=== PATIENT | male | born 1995 | race Asian ===

== ENCOUNTER 2018-01-09 23:06 | Emergency (ER) | payer BC ==
[2018-01-09 23:15] VITALS: BP 129/74
[2018-01-09] MEDS ORDERED: Albuterol/Ipratropium NEB.SOL* Albuterol 2.5 MG/Ipratropium 0.5 MG 3 ML INH ONE (23:21)
[2018-01-09] MEDS ORDERED: predniSONE TAB* 20 MG PO ONE (23:46)
[2018-01-09] MEDS ORDERED: Azithromycin TAB* 250 MG PO ONE (23:49)
--- NOTE | 2018-01-09 23:55 | ED ---
Respiratory - HPI Summary HPI Summary: 22 year male presents with cough for the past 3 weeks. He states that a couple days ago he had a fever. He states his cough is dry and sometimes productive. He admits to occasional vomiting due to the cough. No bowel pain. No chest pain. admits to occasional shortness of breath with cough. No sore throat. No sinus congestion. Has no medical conditions. No family history of asthma or COPD. Is not a smoker. No pain or swelling in his calf muscles. Has not tried anything for her symptoms. - History of Current Complaint Chief Complaint: EDUpperRespComplaint Stated Complaint: COUGH/GENERAL ILLNESS Time Seen by Provider: 01/09/18 23:16 Pain Intensity: 0 Sputum Amount: Scant - Allergy/Home Medications Allergies/Adverse Reactions: Allergies Allergy/AdvReac Type Severity Reaction Status Date / Time No Known Allergies Allergy Verified 01/09/18 23:15 PMH/Surg Hx/FS Hx/Imm Hx Endocrine/Hematology History: Denies: Hx Anticoagulant Therapy Respiratory History: Denies: Hx Asthma Infectious Disease History: No Infectious Disease History: Denies: Traveled Outside the [place] in Last 30 Days - Family History Known Family History: Negative: Respiratory Disease - Social History Alcohol Use: Occasionally Substance Use Type: Reports: None Smoking Status (MU): Never Smoked Tobacco Review of Systems Positive: Fever Negative: Chest Pain Positive: Shortness Of Breath, Cough Positive: Vomiting. Negative: Abdominal Pain All Other Systems Reviewed And Are Negative: Yes Physical Exam Triage Information Reviewed: Yes Vital Signs On Initial Exam: Initial Vitals Temp Pulse Resp BP Pulse Ox 97.7 F 112 15 129/74 96 01/09/18 23:13 01/09/18 23:13 01/09/18 23:13 01/09/18 23:13 01/09/18 23:13 Vital Signs Reviewed: Yes Appearance: Positive: Well-Appearing Skin: Positive: Warm, Dry Head/Face: Positive: Normal Head/Face Inspection Eyes: Positive: Normal, Conjunctiva Clear ENT: Positive: Normal ENT inspection, Pharynx normal, TMs normal Respiratory/Lung Sounds: Positive: Breath Sounds Present, Other - congestion heard Cardiovascular: Positive: Normal, RRR Abdomen Description: Positive: Nontender, Soft Bowel Sounds: Positive: Present Musculoskeletal: Positive: Normal Neurological: Positive: Normal Psychiatric: Positive: Normal Diagnostics - Vital Signs Vital Signs Temp Pulse Resp BP Pulse Ox 01/09/18 23:35 117 18 98 01/09/18 23:13 97.7 F 112 15 129/74 96 - Laboratory Lab Statement: Any lab studies that have been ordered have been reviewed, and results considered in the medical decision making process. - Radiology chest Xray Interpretation: No Acute Changes Radiology Interpretation Completed By: ED Physician Disposition - Course Course Of Treatment: 22 year male presents with cough for the past 3 weeks. He states that a couple days ago he had a fever. He states his cough is dry and sometimes productive. He admits to occasional vomiting due to the cough. No bowel pain. No chest pain. admits to occasional shortness of breath with cough. No sore throat. No sinus congestion. Has no medical conditions. No family history of asthma or COPD. Is not a smoker. No pain or swelling in his calf muscles. Has not tried anything for her symptoms. On exam congestion in lungs. Abdomen soft nontender. Chest x-ray read by me as normal. Gave breathing treatment and some of the congestion cleared. With congestive lungs sound Will put on azithromycin. Will also give steroid and inhaler. Patient understands agrees with plan. - Differential Dx - Cardiopulmonary Differential Diagnoses - Cardiopulmonary: Bronchitis, Influenza, Lower Resp Infection - Diagnoses Provider Diagnoses: Bronchitis Discharge - Sign-Out/Discharge Documenting (check all that apply): Patient Departure - Discharge Plan Condition: Good Disposition: HOME Prescriptions: Azithromycin TAB* [Zithromax TAB (Z-TRISTAN) 250 mg #6 tabs] 250 mg PO DAILY #4 tab predniSONE TAB* [Deltasone TAB*] 50 mg PO DAILY #4 tab Patient Education Materials: Acute Bronchitis (ED) Referrals: No Primary Care Phys,NOPCP [Primary Care Provider] - Additional Instructions: Use inhaler up to two puffs every 4 hours for cough Take steroid once a day for 4 more days starting tomorrow 5 Take antibiotic once daily starting tomorrow for 4 days Take Tylenol or ibuprofen for pain every 6 hours Return to ED if develop severe shortness of breath, worsening chest pain, or any new or worsening symptoms - Billing Disposition and Condition Condition: GOOD Disposition: Home
[2018-01-09] MEDS ORDERED: A lbuterol Hfa (PREPAK) 1 MDI - ED TAKE HOME DISPENSING ONLY INHH ONE (23:56)
[2018-01-09] MEDS ORDERED: Albuterol HFA INHALER* 8 gm MDI INH ONE (23:58)
--- NOTE | 2018-01-10 09:11 | RAD ---
INDICATION: Cough x1 month COMPARISON: None TECHNIQUE: PA and lateral views of the chest were obtained. FINDINGS: The heart and mediastinum are normal in size and contour. The lungs are grossly clear. There is no evidence of large pleural effusion. Visualized bones are normal for the patient's age. There is no radiographic evidence of free air beneath the diaphragm IMPRESSION: No radiographic evidence of acute cardiopulmonary disease. R0
== END 2018-01-10 00:05 | disposition home or self-care (01) ==
LOC: ED 23:06
DX: J40 Bronchitis, not specified as acute or chronic (principal); R11.10 Vomiting, unspecified; R06.02 Shortness of breath; R05 Cough; R50.9 Fever, unspecified
CPT/HCPCS: 71046; 99283; A9270-GY; J7512